=== PATIENT | female | born 1990 | race Caucasian/White ===

== ENCOUNTER 2017-01-10 05:24 | Inpatient (IN) | payer BC ==
[~2017-01-10] VITALS: Ht 157.5 cm; Wt 103.4 kg
[2017-01-10] VITALS (11 sets, daily range): BP systolic 94–126; BP diastolic 54–72
[~2017-01-10 05:24] MED LIST: ENDOCET 5-3251 EACH PO; IBUPROFEN800 MG PO; PRENATAL TABLE1 EAC3 PO
[2017-01-10] MEDS ORDERED: MOTRIN800 MG PO (07:23)
[2017-01-10] MEDS ORDERED: DILAUDID2 MG PO (07:23)
[2017-01-11 03:00] VITALS: BP 102/60
[2017-01-11 07:17] VITALS: BP 99/53
[2017-01-11 09:02] LABS: EOSINOPHIL (%) 1.6 % (0-5); EOSINOPHIL COUNT 0.2 K/uL (0-0.3); HEMATOCRIT 32.2 % (36.0-46.0); IMMATURE GRANULOCYTE (%) 0.9 % (0.0-0.7); IMMATURE GRANULOCYTE COUNT 0.1 K/uL; INSTRUMENT ABS NEUTROPHIL CT 6.6 K/uL; MCH 31.4 PG (29.0-34.0); MCHC 33.9 G/DL (30.0-36.0); MCV 92.8 FL (83-99); MEAN PLAT.VOLUME 11.2 uM^3 (9.5-12.4); MONOCYTE (%) 8.9 % (3-12); MONOCYTE COUNT 0.9 K/uL (0-0.8); NEUTROPHIL (%) 67.4 % (45-76); NEUTROPHIL COUNT 6.6 K/uL (1.8-6.4); PLATELET COUNT 207 K/uL (156-360); RBC DIS.WIDTH-CV 13.4 % (11.8-14.6); RBC DIS.WIDTH-SD 45.1 % (39-53); RED BLOOD COUNT 3.47 M/uL (3.80-5.20); WHITE BLOOD COUNT 9.8 K/uL (4.1-10.2)
[2017-01-11 11:30] VITALS: BP 100/63
[2017-01-11 16:50] VITALS: BP 97/59
[2017-01-11 19:21] VITALS: BP 106/64
[2017-01-11 23:30] VITALS: BP 95/69
[2017-01-12 03:23] VITALS: BP 104/54
[2017-01-12 07:05] VITALS: BP 80/51
[2017-01-12 14:56] VITALS: BP 110/69
[2017-01-12 22:10] VITALS: BP 101/70
[2017-01-13 07:05] VITALS: BP 99/66
[2017-01-13 15:26] VITALS: BP 129/79
[2017-01-13 23:09] VITALS: BP 120/79
[2017-01-14 06:55] VITALS: BP 91/55
== END 2017-01-14 14:52 | disposition home or self-care (01) | DRG 766 ==
LOC: 2WEST 05:24 → 2SOUTH 09:41 → 2WEST 01-14 14:52
PROVIDERS: Obstetrics & Gynecology
PROC: 10D00Z1 Extraction of Products of Conception, Low, Open Approach (ICD-10-PCS; principal; 2017-01-10)
DX: O34.211 Maternal care for low transverse scar from previous cesarean delivery (principal); O69.81X0 Labor and delivery complicated by cord around neck, without compression, not applicable or unspecified; O99.824 Streptococcus B carrier state complicating childbirth; O75.89 Other specified complications of labor and delivery; O99.214 Obesity complicating childbirth; E66.9 Obesity, unspecified; N97.9 Female infertility, unspecified; Z37.0 Single live birth; Z3A.39 39 weeks gestation of pregnancy
CPT/HCPCS: 36415; 85025; 86900; 86901; J0690; J1100; J1885; J2210; J2274; J2405; J2765; J7120